=== PATIENT | female | born 1960 ===

== ENCOUNTER 2018-06-14 08:41 | Day surgery (SDC) | payer OTHER ==
[2018-06-14 10:21] VITALS: BMI 37.5
[2018-06-14] MEDS ORDERED: Propofol 10 mg/ml Inj (20 ML) ONE (12:23)
[2018-06-14] MEDS ORDERED: Lactated Ringer's 500 ML IV ONE (12:26)
[2018-06-14 12:57] VITALS: TEMP 96.8
[2018-06-14 13:09] VITALS: BP 115/64; PULSE 65; RESP 12; O2SAT 100
== END 2018-06-14 14:27 | disposition home or self-care (01) ==
LOC: H.ENDO 08:41 → MERGE 09:30 → H.ENDO 14:27
PROVIDERS: ATTEND Internal Medicine Gastroenterology
DX: K92.2 Gastrointestinal hemorrhage, unspecified (principal); M19.90 Unspecified osteoarthritis, unspecified site; Z86.73 Personal history of transient ischemic attack (TIA), and cerebral infarction without residual deficits; E78.5 Hyperlipidemia, unspecified; I10 Essential (primary) hypertension; G47.33 Obstructive sleep apnea (adult) (pediatric); M32.9 Systemic lupus erythematosus, unspecified; K62.89 Other specified diseases of anus and rectum; R19.5 Other fecal abnormalities
CPT/HCPCS: 45380; 88305; J2001; J2704; J7120